=== PATIENT | female | born 1970 | race Caucasian/White ===

== ENCOUNTER → 2018-01-15 07:49 | Outpatient (CLI) | payer OTHER, SELFPAY ==
[2018-01-15 08:51] LABS: Blood Urea Nitrogen 16 mg/dL (7-17); Calcium 9.5 mg/dL (8.4-10.2); Carbon Dioxide 29 mmol/L (22-32); Chloride 102 mmol/L (98-107); Estimated Glomerular Filt Rate > 60.0 mL/min (>60); Glucose 94 mg/dL (70-100); HEMOLYSIS < 15 (0-50); Potassium 4.3 mmol/L (3.4-5.1); Sodium 142 mmol/L (137-145)
[2018-01-15 09:17] LABS: Thyroid Stimulating Hormone 2.34 uIU/mL (0.47-4.68)
== END ==
PROVIDERS: PCP Internal Medicine; Visit Provider Internal Medicine
DX: I10 Essential (primary) hypertension (principal); E28.2 Polycystic ovarian syndrome; E03.9 Hypothyroidism, unspecified
CPT/HCPCS: 36415; 80048; 84443

== ENCOUNTER → 2018-01-21 12:58 | Outpatient (CLI) | payer OTHER, SELFPAY ==
[2018-01-21 13:53] LABS: Cholesterol 189 mg/dL (140-199); HDL Cholesterol 69 mg/dL (40-60); LDL Cholesterol Calculated 109 mg/dL (<100); Triglycerides 54 mg/dL (35-150)
== END ==
PROVIDERS: PCP Internal Medicine; Visit Provider Internal Medicine
DX: E78.5 Hyperlipidemia, unspecified (principal)
CPT/HCPCS: 80061

== ENCOUNTER → 2018-06-26 07:30 | Outpatient (CLI) | payer OTHER, SELFPAY ==
[2018-06-26 08:42] LABS: Add Manual Diff / Slide Review NO; Basophils Percent Auto 0.6 % (0-2); Eosinophils Percent Auto 4.8 % (2-4); Hematocrit 38.9 % (36-46); Hemoglobin 12.7 g/dL (12.0-16.0); Lymphocytes Percent Auto 28.7 % (25-40); Mean Corpuscular HGB Conc 32.8 % (30-36); Mean Corpuscular Hemoglobin 29.5 PG (26-34); Mean Corpuscular Volume 90.1 fL (80-100); Monocytes Percent Auto 8.9 % (3-14); Neutrophils Absolute Auto 3700 /uL (3000-5900); Platelet Count 239 X10^3/uL (150-400); Red Blood Cell Count 4.31 X10^6/uL (4.0-5.2); Red Cell Distribution Width 13.7 % (11.6-14.8); White Blood Cell Count 6.4 X10^3/uL (4.5-11.0)
[2018-06-26 08:58] LABS: Alanine Aminotransferase 24 IU/L (9-52); Albumin 4.4 g/dL (3.5-5.0); Alkaline Phosphatase 45 U/L (38-126); Aspartate Aminotransferase 22 IU/L (14-36); BUN Creatinine Ratio 21.3 (6-22); Bilirubin Total 0.4 mg/dL (0.2-1.3); Blood Urea Nitrogen 17 mg/dL (7-17); Calcium 9.1 mg/dL (8.4-10.2); Carbon Dioxide 28 mmol/L (22-32); Chloride 105 mmol/L (98-107); Estimated Glomerular Filt Rate > 60.0 mL/min (>60); Glucose 91 mg/dL (70-100); Potassium 4.9 mmol/L (3.4-5.1); Sodium 145 mmol/L (137-145); Total Protein 6.9 g/dL (6.3-8.2)
[2018-06-26 08:59] LABS: Albumin Globulin Ratio 1.8 (1.0-2.8); Cholesterol 165 mg/dL (140-199); Globulin 2.5 g/dL (1.7-4.1); HDL Cholesterol 60 mg/dL (40-60); HEMOLYSIS < 15 (0-50); LDL Cholesterol Calculated 96 mg/dL (<100); Triglycerides 44 mg/dL (35-150)
[2018-06-26 09:27] LABS: TSH w/ Reflex to FT4 3.14 uIU/mL (0.47-4.68)
== END ==
PROVIDERS: PCP Internal Medicine; Visit Provider Internal Medicine
DX: E78.5 Hyperlipidemia, unspecified (principal); Z00.00 Encounter for general adult medical examination without abnormal findings
CPT/HCPCS: 36415; 80053; 80061; 84443; 85025

== ENCOUNTER → 2018-07-15 11:07 | Outpatient (CLI) | payer OTHER, SELFPAY ==
--- NOTE | 2018-07-15 | DI.MG.S_ITS ---
BILATERAL DIGITAL SCREENING MAMMOGRAM 3D/2D WITH CAD: 07/15/2018 CLINICAL: Routine screening. Family history of breast cancer. Comparison is made to exams dated: 06/24/2017 specimen, 06/24/2017 stereotactic biopsy - [facility], and 06/17/2017 mammogram - [facility]. There are scattered fibroglandular elements in both breasts. Current study was also evaluated with a Computer Aided Detection (CAD) system. There is a benign biopsy clip in the right breast. No significant masses, calcifications, or other findings are seen in either breast. There has been no significant interval change. IMPRESSION: NEGATIVE There is no mammographic evidence of malignancy. A 1 year screening mammogram is recommended. This exam was interpreted at Station ID: [id number]. NOTE: For mammograms, a report in lay terms will be sent to the patient. Approximately 15% of breast malignancies will not be visualized mammographically. In the management of a palpable breast mass, a negative mammogram must not discourage biopsy of a clinically suspicious lesion. Electronically Signed By: Jorge diehl/bruce:07/15/2018 16:02:25 letter sent: Normal Exam ACR BI-RADS Category 1: Negative 3341F
== END ==
PROVIDERS: PCP Internal Medicine; Visit Provider Internal Medicine
DX: Z12.31 Encounter for screening mammogram for malignant neoplasm of breast (principal); Z80.3 Family history of malignant neoplasm of breast
CPT/HCPCS: 77063; 77067

== ENCOUNTER → 2018-09-15 14:30 | Outpatient (CLI) | payer OTHER, SELFPAY ==
--- NOTE | 2018-09-15 | DI.ECHO.S_ITS ---
[place] [facility]---------+ [facility] +---------+ : : [address] : : : : [id number] : : : : Phone: [phone]+ Echocardiogram Report + + :Name: KALANI AVLAREZ Study Date: 09/15/2018 Height: 67 in : :[facility] Weight: 174 lb : : Gender: Female BSA: 1.9 m2 : :: 1970 Age: 48 yrs BP: 132/70 mmHg: :Reason For Study: Murmur : : Performed By: Diana Montalvo : :Referring: RENETTA DEL VALLE : + + Interpretation Summary The ejection fraction is estimated to be 60-65%. The ascending aorta is mildly enlarged. There is no significant valvular heart disease. Procedure: A two-dimensional transthoracic echocardiogram with color flow and Doppler was performed. The study quality was technically adequate. There is no prior echocardiogram noted for this patient. The patient was in normal sinus rhythm during the exam. Left Ventricle: The left ventricle is normal in size, wall thickness, and systolic function without any focal wall motion abnormalities. The ejection fraction is estimated to be 60-65%. Left ventricular wall motion is normal. Diastolic parameters suggest probable normal left ventricular diastolic function and normal filling pressures. Right Ventricle: The right ventricle grossly appears normal in size with probable normal systolic function. Atria: The left atrial size is normal. Right atrial size is normal. The interatrial septum is intact with no evidence for an atrial septal defect. Mitral Valve: The mitral valve is normal in structure and function. There is no mitral regurgitation noted. Aortic Valve: The aortic valve is trileaflet. The aortic valve opens well. No aortic regurgitation is present. Tricuspid Valve: The tricuspid valve is normal in structure and function. There is a trace or physiologic amount of tricuspid regurgitation. The right ventricular systolic pressure is estimated to be at least 27 mmHg based on an estimated right atrial pressure of 3 mm Hg. Pulmonic Valve: The pulmonic valve is normal in structure and function. There is a trace or physiologic amount of pulmonic regurgitation. Great Vessels: The aortic root is normal size. The ascending aorta is mildly enlarged. The aortic arch is normal in size. The IVC is of normal diameter and collapses greater than 50% with a sniff. This suggests a low right atrial pressure of 3 mm Hg. Pericardium/ Pleura There is no pericardial effusion. There is no pleural effusion. MMode/2D Measurements & Calculations LVIDd: 5.1 cm Ao root diam: 3.2 cm LVIDs: 3.2 cm Aortic Jxn: 2.9 cm FS: 37.0 % asc Aorta Diam: 3.8 cm IVSd: 0.96 cm Ao Arch Diam (Prox Trans): 2.8 cm LVPWd: 0.96 cm LV hunt. diameter/BSA (cm/m^2): 2.7 LV sys. diameter/BSA (cm/m^2): 1.7 LA dimension: 3.8 cm RA long axis: 5.2 cm LA A2 area: 18.3 cm2 RA area: 18.0 cm2 LA A4 area: 18.9 cm2 RA vol: 52.4 ml LA length (vol): 5.3 cm RA : 27.5 ml/m2 LA vol: 55.6 ml IVC diam: 1.7 cm LA vol index: 29.2 ml/m2 RVDd major: 4.9 cm RVD1 (basal): 3.3 cm RVD2 (mid): 3.0 cm Doppler Measurements & Calculations Ao V2 max: 126.7 cm/sec MV E max óscar: 79.3 cm/sec Ao V2 mean: 83.8 cm/sec MV A max óscar: 76.7 cm/sec Ao max P.4 mmHg MV E/A: 1.0 Ao mean P.2 mmHg Med Peak E' Óscar: 8.0 cm/sec Ao V2 VTI: 26.0 cm E/E' med: 9.9 Lat Peak E' Óscar: 10.4 cm/sec E/E' lat: 7.6 E/e' average: 8.8 MV dec time: 0.31 sec MV P1/2t: 91.6 msec TR max óscar: 242.6 cm/sec MV P1/2t max óscar: 78.1 cm/sec TR max P.5 mmHg MVA(P1/2t): 2.4 cm2 PA V2 max: 105.0 cm/sec PA V2 mean: 72.1 cm/sec PA mean P.4 mmHg PA Accel Time: 0.16 sec Reading Physician:09:25 AM
[2018-09-15 16:23] LABS: Free T3, Triiodothyronine Free 3.14 pg/mL (2.77-5.27); Free T4, Direct Thyroxine 1.08 ng/dL (0.78-2.19)
[2018-09-15 16:37] LABS: Thyroid Stimulating Hormone 2.57 uIU/mL (0.47-4.68)
== END ==
PROVIDERS: PCP Internal Medicine; Visit Provider Internal Medicine
DX: R01.1 Cardiac murmur, unspecified (principal); I77.810 Thoracic aortic ectasia; E03.9 Hypothyroidism, unspecified
CPT/HCPCS: 36415; 84439; 84443; 84481; 93306

== ENCOUNTER → 2019-05-03 09:33 | Outpatient (CLI) | payer OTHER, SELFPAY | PROVIDERS: PCP Internal Medicine; Visit Provider Physician Assistant | DX: N39.0 Urinary tract infection, site not specified (principal) | CPT/HCPCS: 87077; 87086; 87147; 87186 ==

== ENCOUNTER → 2019-09-07 15:57 | Outpatient (CLI) | payer OTHER, SELFPAY ==
--- NOTE | 2019-09-07 | DI.MG.S_ITS ---
BILATERAL DIGITAL SCREENING MAMMOGRAM 3D/2D WITH CAD: 09/07/2019 CLINICAL: Routine screening. Family history of breast cancer. Comparison is made to exams dated: 07/15/2018 mammogram, 06/13/2017 mammogram, 06/11/2016 mammogram, 06/06/2015 mammogram, and 05/02/2014 mammogram - [facility]. There are scattered fibroglandular elements in both breasts. Current study was also evaluated with a Computer Aided Detection (CAD) system. There is a biopsy clip in the right breast. No significant masses, calcifications, or other findings are seen in either breast. There has been no significant interval change. IMPRESSION: NEGATIVE There is no mammographic evidence of malignancy. A 1 year screening mammogram is recommended. This exam was interpreted at Station ID: [id number]. NOTE: For mammograms, a report in lay terms will be sent to the patient. Approximately 15% of breast malignancies will not be visualized mammographically. In the management of a palpable breast mass, a negative mammogram must not discourage biopsy of a clinically suspicious lesion. Electronically Signed By: Adriano jameson/bruce:09/07/2019 18:11:30 letter sent: Normal Exam ACR BI-RADS Category 1: Negative 3341F
== END ==
PROVIDERS: PCP Internal Medicine; Referring Provider Internal Medicine; Visit Provider Internal Medicine
DX: Z12.31 Encounter for screening mammogram for malignant neoplasm of breast (principal); Z80.3 Family history of malignant neoplasm of breast
CPT/HCPCS: 77063; 77067

== ENCOUNTER → 2020-02-15 08:32 | Outpatient (CLI) | payer OTHER, SELFPAY ==
[2020-02-16 14:44] LABS: COVID19 Sendout Not Detected (Not Detect)
== END ==
PROVIDERS: PCP Internal Medicine; Visit Provider Physician Assistant
DX: Z01.812 Encounter for preprocedural laboratory examination (principal)
CPT/HCPCS: 87635

== ENCOUNTER 2020-02-18 12:02 | Day surgery (SDC) | payer OTHER, SELFPAY ==
--- NOTE | 2020-02-18 12:07 | PM.HP.1 ---
History of Present Illness History of Present Illness Date Patient Seen: 02/18/20 Chief complaint: [id number] SCREENING COLONOSCOPY Narrative: 49 Years Old Female seen today for consideration of a screening colonoscopy. There have been no lower GI symptoms suggesting disease such as change in bowel habits, bleeding, abdominal pain or anemia. There's been no family history of colon cancer or colon polyps. Overall health issues have been stable, including no major cardiac events for at least 6 weeks. Current Medications (verified): 1) Atenolol 25 Mg Oral Tablet (Atenolol) .... Take 1/2 tablet once a day for blood pressure control. 2) Levothyroxine Sodium 25 Mcg Oral Tablet (Levothyroxine Sodium) .... Take 1 tablet by mouth once a day for thyroid replacement. 3) Estradiol 0.5 Mg Oral Tablet (Estradiol) .... Take 1/2 tablet by mouth every day for hormone replacement. 4) Fish Oil 1000 Mg Oral Capsule ([place]-3 Fatty Acids) .... take one capsule 1 time a day to reduce cardiovascular risk 5) Multi-Vitamin/minerals Oral Tablet (Multiple Vitamins-Minerals) .... take one daily 6) Vitamin D3 2000 Unit Oral Capsule (Cholecalciferol) .... Take one capsule once daily. Allergies (verified): No Known Drug Allergies Past Medical History: Reviewed history from 08/31/2018 and no changes required: Pregnancies: 1 Live Births: 1 Living children: 1 Hypertension Hyperlipidemia Dermatology - Miriam Cuevas PA-C for moles Past Surgical History: Reviewed history from 08/31/2018 and no changes required: Hysterectomy - November 2015 LAVH - 11/2015 Laprotomy post-op infection - 12/2015 - April 2005 Family History: Reviewed history from 08/31/2018 and no changes required: Father: Oren Roper (1948) - living, hypertension Mother: Maryuri Nelson (1949) - living, macular degeneration Siblings: Sanjay Nelson (1971) Hyperlipidemia, hypertension, hypothyroidism, Heart troubles. Social History: Reviewed history from 09/28/2019 and no changes required: Marital Status: - . 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 [employer] Household Members: 2 Education: Some college Alcohol drinks/day: <1/day Caffeine use/day: 3-4 Type of Exercise: yoga, walk/run, strength Exercise Times per Week: 5-7 Guns in home: no Dental Care w/in 6 mos.: yes Sun Exposure: rarely Fall Risk: no falls in past year Seat Belt Use: yes Smoking Status: former smoker Tobacco Type: cigarettes Packs/Day: 1 Pack years: 8 Passive Smoke Exposure: yes Drug Use: never HIV High Risk Behavior: no Patient History Medical History (Updated 11/27/18 @ 10:01 by ROMULO Ocampo) Hyperlipidemia (Chronic ~2010) Hypertension (Chronic ~2010) Surgical History (Updated 12/02/17 @ 05:17 by Conversion Provider) Status post delivery (04/26/05) Family & Social History Family History (Updated 06/28/18 @ 19:40 by Aracelis Sky) Brother Age: 47 Hypertension High cholesterol Father Hypertension Social History: household members lives independently Yes caregiver/support person No Tobacco & Substance use: Smoking Status Former smoker alcohol intake current Meds Home Medications and Allergies Home Medications Medication Instructions Recorded Confirmed Type Fish Oil (#FISH OIL) 1 iu PO Q DAY #0 08/01/11 05/03/19 History multivitamin [Multiple Vitamins] 1 tab PO QDAY #0 tab 06/03/16 05/03/19 History alprazolam 0.25 mg tablet 0.25 mg PO Q12HP #12 06/29/18 05/03/19 Rx eflornithine 13.9 % topical cream 1 applictn TOPICAL BID #45 gram 06/29/18 05/03/19 Rx Respironics Remstar CPAP #1 ea 11/30/18 05/03/19 History atenolol 25 mg tablet 12.5 mg PO DAILY tab 11/30/18 05/03/19 History cholecalciferol (vitamin D3) 50 2,000 unit PO DAILY 11/30/18 05/03/19 History mcg (2,000 unit) capsule estradiol 0.5 mg tablet 0.5 mg PO DAILY 11/30/18 05/03/19 History phenazopyridine 100 mg tablet 100 mg PO TID PRN 0 Days #6 tab 05/03/19 05/03/19 Rx sulfamethoxazole 800 1 tab PO BID #14 tab 05/03/19 05/03/19 Rx mg-trimethoprim 160 mg tablet Allergies Allergy/AdvReac Type Severity Reaction Status Date / Time No Known Allergies Allergy Uncoded 02/15/20 16:34 Review of Systems Review of Systems ROS: Yes All systems reviewed with the patient and are negative except as otherwise documented Exam Narrative Exam Narrative: General: Alert and oriented, appearing stated age and in no acute distress. Head: Head normocephalic/atraumatic. Neck: Neck soft and supple, no lymphadenopathy. Lungs: Clear to auscultation bilaterally, no wheezes, rhonchi or rales. Heart: Normal S1 and S2 with regular rate and rhythm, no audible murmurs, rubs or gallops. Abdomen: Soft, non-tender, non-distended, no organomegaly. Possitive bowel sounds. Psych: Alert and oriented x 3. Assessment & Plan Assessment & Plan narrative: 1. Screening for colon cancer Plan for colonoscopy. The nature and character of the procedure as well as anticipated results were discussed. The possibility of not completing the procedure was also discussed. Possible complications including aspiration pneumonia, bleeding, perforation and reaction to medications either for sedation or preparation and missed lesions were discussed. Questions were answered and proceeding to the colonoscopy was elected. Informed consent signed. I sincerely appreciate the referral allowing me to participate in this patient's care. Please contact me with any questions or concerns.
--- NOTE | 2020-02-18 12:09 | PM.OP.ENDO ---
Operative Date/Time/Diagnoses Date of procedure: 02/18/20 Pre-op diagnosis: 1. Screening for colon cancer Post-op diagnosis: other (1. Normal colonoscopy, 2. Pancolonic diverticulosis) Procedure & Clinicians Study performed: Colonoscopy Same procedure as scheduled: Yes Indications: 1. Screening for colon cancer Surgeon: Dolores Boateng Procedure Notes SCOAP/Timeout: 13:06 Procedure in detail: ENDOSCOPIST: Dolores Boateng MD Sedation RN: Stefanie Go RN Sedation start time: 1:07 p.m. Sedation end time: 1:32 p.m. PROCEDURE: Colonoscopy INDICATIONS: 1. Screening for colon cancer MEDICATION: Levsin 0.125 mg sublingual, incremental doses of Versed and fentanyl until appropriate level sedation achieved. ASA CLASS: 2 CECAL WITHDRAWAL TIME: 12 minutes COMPLICATIONS: None. EXTENT OF PROCEDURE: Cecum. QUALITY OF PREP: Good with portions of liquid stool. PROCEDURE: Prior to insertion of the colonoscope, a digital rectal examination was accomplished with circumferential palpation of the distal rectal mucosa without significant findings being noted. The high-definition pediatric colonoscope was passed into the rectum in the usual fashion and advanced over to the cecum without difficulty. The ileocecal valve, appendiceal stoma, and medial wall all could be inspected and no abnormalities were seen. ASCENDING COLON: As the colonoscope was withdrawn, care was taken to expose and inspect the haustral folds and minor diverticulosis was noted. HEPATIC FLEXURE: Minor diverticulosis, otherwise, normal, no polyps, or other abnormalities. TRANSVERSE COLON: Minor diverticulosis, otherwise, normal, no polyps, or other abnormalities. DESCENDING COLON: Moderate diverticulosis, otherwise, normal, no polyps, or other abnormalities. SIGMOID COLON: Moderate diverticulosis, otherwise, normal, no polyps, or other abnormalities. RECTUM: Normal. J maneuver was produced. There was no significant perianal disease. The J maneuver was broken. The remainder of the rectum was inspected and there was no external hemorrhoid disease. The scope was withdrawn. IMPRESSION: 1. Normal colonoscopy 2. Pancolonic diverticulosis PLAN: 1. Repeat colonoscopy in 10 years. The possibility of a missed lesion including a malignancy has been discussed with the patient previously. Potential alarm symptoms have been discussed and should be reported immediately. Specimen(s): none sent Complications: none Post-procedure Recommendations: Colonscopy in 10 years Follow up: as needed Disposition: PACU
[2020-02-18 12:14] VITALS: BP 118/76; PULSE 60; RESP 16; TEMP 36.2; O2SAT 99; BMI 27.3
[2020-02-18] MEDS: LACTATED RINGERS 1,000 ML 200 ML IV ×2 (12:20→13:38)
[2020-02-18] MEDS: MIDAZOLAM 5 MG/5 ML VIAL IV (13:16)
[2020-02-18] MEDS: fentaNYL 250 MCG/5 ML INJ IV (13:16)
[2020-02-18 13:36] VITALS: BP 111/70; PULSE 62; RESP 13; O2SAT 100
[2020-02-18 13:41] VITALS: BP 117/75; PULSE 67; RESP 15; TEMP 35.7; O2SAT 100
[2020-02-18 13:51] VITALS: BP 120/73; PULSE 64; RESP 18; O2SAT 100
== END 2020-02-18 14:05 | disposition home or self-care (01) ==
PROVIDERS: PCP Internal Medicine; Referring Provider Student in an Organized Health Care Education/Training Program; Visit Provider Student in an Organized Health Care Education/Training Program
PROC: 0DJD8ZZ Inspection of Lower Intestinal Tract, Via Natural or Artificial Opening Endoscopic (ICD-10-PCS; CPT 45378; principal; 2020-02-18 13:00)
DX: Z12.11 Encounter for screening for malignant neoplasm of colon (principal); I10 Essential (primary) hypertension; E78.5 Hyperlipidemia, unspecified; K57.30 Diverticulosis of large intestine without perforation or abscess without bleeding
CPT/HCPCS: 45378; J2250; J3010

== ENCOUNTER → 2020-12-14 08:05 | Outpatient (CLI) | payer OTHER, SELFPAY ==
--- NOTE | 2020-12-14 | DI.MG.S_ITS ---
BILATERAL DIGITAL SCREENING MAMMOGRAM 3D/2D WITH CAD: 12/14/2020 CLINICAL: Routine screening. Family history of breast cancer. Comparison is made to exams dated: 09/07/2019 mammogram, 07/15/2018 mammogram, and 06/13/2017 mammogram - [facility]. There are scattered fibroglandular elements in both breasts. Current study was also evaluated with a Computer Aided Detection (CAD) system. There is a biopsy clip in the right breast. No significant masses, calcifications, or other findings are seen in either breast. There has been no significant interval change. IMPRESSION: NEGATIVE There is no mammographic evidence of malignancy. A 1 year screening mammogram is recommended. This exam was interpreted at Station ID: [id number]. NOTE: For mammograms, a report in lay terms will be sent to the patient. Approximately 15% of breast malignancies will not be visualized mammographically. In the management of a palpable breast mass, a negative mammogram must not discourage biopsy of a clinically suspicious lesion. Electronically Signed By: Jorge diehl/bruce:12/14/2020 09:01:49 letter sent: Normal Exam ACR BI-RADS Category 1: Negative 3341F
== END ==
PROVIDERS: PCP Internal Medicine; Referring Provider Internal Medicine; Visit Provider Internal Medicine
DX: Z12.31 Encounter for screening mammogram for malignant neoplasm of breast (principal); Z80.3 Family history of malignant neoplasm of breast
CPT/HCPCS: 77063; 77067

== ENCOUNTER → 2021-12-28 08:53 | Outpatient (CLI) | payer OTHER, SELFPAY ==
--- NOTE | 2021-12-28 | DI.MG.S_ITS ---
BILATERAL DIGITAL SCREENING MAMMOGRAM 3D/2D WITH CAD: 12/28/2021 CLINICAL: Routine screening. Family history of breast cancer. Comparison is made to exams dated: 12/14/2020 mammogram, 09/07/2019 mammogram, and 07/15/2018 mammogram - [facility]. The tissue of both breasts is predominantly fatty. Current study was also evaluated with a Computer Aided Detection (CAD) system. There is a biopsy clip in the right breast. No significant masses, calcifications, or other findings are seen in either breast. There has been no significant interval change. IMPRESSION: NEGATIVE There is no mammographic evidence of malignancy. A 1 year screening mammogram is recommended. This exam was interpreted at Station ID: [id number]. NOTE: For mammograms, a report in lay terms will be sent to the patient. Approximately 15% of breast malignancies will not be visualized mammographically. In the management of a palpable breast mass, a negative mammogram must not discourage biopsy of a clinically suspicious lesion. Electronically Signed By: Orin walters/bruce:12/28/2021 12:30:14 letter sent: Normal Exam ACR BI-RADS Category 1: Negative 3341F
== END ==
PROVIDERS: PCP Internal Medicine; Referring Provider Internal Medicine; Visit Provider Internal Medicine
DX: Z12.31 Encounter for screening mammogram for malignant neoplasm of breast (principal); Z80.3 Family history of malignant neoplasm of breast
CPT/HCPCS: 77063; 77067

== ENCOUNTER → 2023-03-19 08:08 | Outpatient (CLI) | payer OTHER, SELFPAY ==
--- NOTE | 2023-03-19 | DI.MG.S_ITS ---
BILATERAL DIGITAL SCREENING MAMMOGRAM 3D/2D WITH CAD: 03/19/2023 CLINICAL: Routine screening. Family history of breast cancer. Comparison is made to exams dated: 12/28/2021 mammogram, 12/14/2020 mammogram, and 09/07/2019 mammogram - [facility]. Both breasts are almost entirely fatty (category a/<25% glandular tissue). Current study was also evaluated with a Computer Aided Detection (CAD) system. There is a biopsy clip in the right breast. No significant masses, calcifications, or other findings are seen in either breast. There has been no significant interval change. IMPRESSION: NEGATIVE There is no mammographic evidence of malignancy. A 1 year screening mammogram is recommended. Based on the Tyrer Cuzick model (a risk assessment model) the patient's lifetime risk is 10.3% and her 10 year risk is 2.8%. According to the ACR, ACS, and NCCN guidelines, an annual breast MRI exam along with mammogram is recommended if the patient's lifetime risk is 20% or greater. This exam was interpreted at Station ID: [id number]. NOTE: For mammograms, a report in lay terms will be sent to the patient. Approximately 15% of breast malignancies will not be visualized mammographically. In the management of a palpable breast mass, a negative mammogram must not discourage biopsy of a clinically suspicious lesion. Electronically Signed By: Orin walters/bruce:03/19/2023 12:00:07 letter sent: Normal Exam ACR BI-RADS Category 1: Negative 3341F
== END ==
PROVIDERS: PCP Internal Medicine; Referring Provider Internal Medicine; Visit Provider Internal Medicine
DX: Z12.31 Encounter for screening mammogram for malignant neoplasm of breast (principal); Z80.3 Family history of malignant neoplasm of breast
CPT/HCPCS: 77063; 77067

== ENCOUNTER → 2023-03-21 08:45 | Outpatient (CLI) | payer OTHER, SELFPAY ==
[2023-03-21 10:04] LABS: Add Manual Diff / Slide Review NO; Basophils Absolute Auto 0 /uL (0-100); Basophils Percent Auto 0.6 % (0-2); Eosinophils Absolute Auto 200 /uL (0-450); Eosinophils Percent Auto 3.2 % (2-4); Hematocrit 39.9 % (36-46); Hemoglobin 13.3 g/dL (12.0-16.0); Lymphocytes Absolute Auto 1800 /uL (1100-4500); Lymphocytes Percent Auto 29.5 % (25-40); Mean Corpuscular HGB Conc 33.3 % (30-36); Mean Corpuscular Hemoglobin 28.5 PG (26-34); Mean Corpuscular Volume 85.6 fL (80-100); Monocytes Absolute Auto 500 /uL (0-900); Monocytes Percent Auto 7.7 % (3-14); Neutrophils Absolute Auto 3500 /uL (1500-7000); Platelet Count 238 X10^3/uL (150-400); Red Blood Cell Count 4.66 X10^6/uL (4.0-5.2); Red Cell Distribution Width 14.4 % (11.6-14.8)
[2023-03-21 10:28] LABS: Alanine Aminotransferase 24 IU/L (<35); Albumin 4.2 g/dL (3.5-5.0); Albumin Globulin Ratio 1.6 (1.0-2.8); Alkaline Phosphatase 84 U/L (38-126); Aspartate Aminotransferase 27 IU/L (14-36); Bilirubin Total 0.6 mg/dL (0.2-1.3); Blood Urea Nitrogen 15 mg/dL (7-17); Calcium 9.5 mg/dL (8.4-10.2); Carbon Dioxide 29 mmol/L (22-32); Chloride 102 mmol/L (98-107); Cholesterol 243 mg/dL (140-199); Estimated Glomerular Filt Rate > 60 mL/min (>60); Globulin 2.7 g/dL (1.7-4.1); Glucose 104 mg/dL (70-100); HDL Cholesterol 62 mg/dL (40-60); HEMOLYSIS < 15 (0-50); LDL Cholesterol Calculated 148 mg/dL (<100); Potassium 4.8 mmol/L (3.4-5.1); Sodium 139 mmol/L (137-145); Total Protein 6.9 g/dL (6.3-8.2); Triglycerides 165 mg/dL (35-150)
[2023-03-21 10:53] LABS: Thyroid Stimulating Hormone 2.39 uIU/mL (0.47-4.68)
== END ==
PROVIDERS: PCP Internal Medicine; Referring Provider Internal Medicine; Visit Provider Internal Medicine
DX: Z51.81 Encounter for therapeutic drug level monitoring (principal); I10 Essential (primary) hypertension; E78.00 Pure hypercholesterolemia, unspecified; E03.9 Hypothyroidism, unspecified
CPT/HCPCS: 36415; 80053; 80061; 84443; 85025

== ENCOUNTER → 2024-03-26 08:46 | Outpatient (CLI) | payer OTHER, SELFPAY ==
[2024-03-26 09:48] LABS: Add Manual Diff / Slide Review NO; Basophils Absolute Auto 0 /uL (0-100); Basophils Percent Auto 0.5 % (0-2); Eosinophils Absolute Auto 100 /uL (0-450); Eosinophils Percent Auto 1.9 % (2-4); Hematocrit 41.7 % (36-46); Hemoglobin 13.7 g/dL (12.0-16.0); Lymphocytes Absolute Auto 1900 /uL (1100-4500); Lymphocytes Percent Auto 25.2 % (25-40); Mean Corpuscular HGB Conc 32.9 % (30-36); Mean Corpuscular Hemoglobin 28.6 PG (26-34); Mean Corpuscular Volume 86.8 fL (80-100); Monocytes Absolute Auto 700 /uL (0-900); Monocytes Percent Auto 8.9 % (3-14); Neutrophils Absolute Auto 4900 /uL (1500-7000); Neutrophils Percent Auto 63.5 % (50-75); Platelet Count 251 X10^3/uL (150-400); Red Cell Distribution Width 14.3 % (11.6-14.8); White Blood Cell Count 7.7 X10^3/uL (4.5-11.0)
[2024-03-26 09:54] LABS: Hemoglobin A1C% w Est Avg Glu 5.5 % (4.0-6.0)
[2024-03-26 10:11] LABS: Alanine Aminotransferase 25 IU/L (<35); Albumin 4.4 g/dL (3.5-5.0); Albumin Globulin Ratio 1.8 (1.0-2.8); Alkaline Phosphatase 77 U/L (38-126); Aspartate Aminotransferase 26 IU/L (14-36); BUN Creatinine Ratio 14.1 (6-22); Bilirubin Total 0.6 mg/dL (0.2-1.3); Blood Urea Nitrogen 12 mg/dL (7-17); Calcium 9.7 mg/dL (8.4-10.2); Carbon Dioxide 26 mmol/L (22-32); Chloride 103 mmol/L (98-107); Cholesterol 252 mg/dL (140-199); Estimated Glomerular Filt Rate > 60 mL/min (>60); Globulin 2.5 g/dL (1.7-4.1); Glucose 98 mg/dL (70-100); HDL Cholesterol 56 mg/dL (40-60); HEMOLYSIS < 15 (0-50); LDL Cholesterol Calculated 159 mg/dL (<100); Potassium 5.1 mmol/L (3.4-5.1); Sodium 140 mmol/L (137-145); Total Protein 6.9 g/dL (6.3-8.2); Triglycerides 187 mg/dL (35-150)
[2024-03-26 10:37] LABS: TSH w/ Reflex to FT4 1.59 uIU/mL (0.47-4.68)
== END ==
LOC: LAB 08:48
PROVIDERS: PCP Internal Medicine; Referring Provider Internal Medicine; Visit Provider Internal Medicine
DX: I10 Essential (primary) hypertension (principal); Z13.0 Encounter for screening for diseases of the blood and blood-forming organs and certain disorders involving the immune mechanism; E78.00 Pure hypercholesterolemia, unspecified; R73.03 Prediabetes; Z11.59 Encounter for screening for other viral diseases; E03.9 Hypothyroidism, unspecified
CPT/HCPCS: 36415; 80053; 80061; 83036; 84443; 85025

== ENCOUNTER → 2024-05-03 08:03 | Outpatient (CLI) | payer OTHER, SELFPAY ==
--- NOTE | 2024-05-03 | DI.MG.S_ITS ---
BILATERAL DIGITAL SCREENING MAMMOGRAM 3D/2D WITH CAD: 05/03/2024 CLINICAL: Routine screening. Family history of breast cancer. Comparison is made to exams dated: 03/19/2023 mammogram, 12/28/2021 mammogram, and 12/14/2020 mammogram - [facility]. The breasts are almost entirely fatty (category a/<25% glandular tissue). Current study was also evaluated with a Computer Aided Detection (CAD) system. There is a biopsy clip in the right breast. There is a possible developing focal asymmetry in the right breast lower inner quadrant at posterior depth, best seen on the CC view. No other significant masses, calcifications, or other findings are seen in either breast. IMPRESSION: INCOMPLETE: NEED ADDITIONAL IMAGING EVALUATION The possible developing focal asymmetry in the right breast is indeterminate. A diagnostic mammogram and ultrasound is recommended. Based on the Tyrer Cuzick model (a risk assessment model) the patient's lifetime risk is 10.2% and her 10 year risk is 3.0%. According to the ACR, ACS, and NCCN guidelines, an annual breast MRI exam along with mammogram is recommended if the patient's lifetime risk is 20% or greater. This exam was interpreted at Station ID: [id number]. NOTE: For mammograms, a report in lay terms will be sent to the patient. Approximately 15% of breast malignancies will not be visualized mammographically. In the management of a palpable breast mass, a negative mammogram must not discourage biopsy of a clinically suspicious lesion. Electronically Signed By: Ariela Banerjee M.D., Ph.D. eb/:05/03/2024 10:48:31 letter sent: Additional Imaging Needed ACR BI-RADS Category 0: Incomplete: Need Additional Imaging Evaluation
== END ==
PROVIDERS: PCP Internal Medicine; Referring Provider Internal Medicine; Visit Provider Internal Medicine
DX: Z12.31 Encounter for screening mammogram for malignant neoplasm of breast (principal); Z80.3 Family history of malignant neoplasm of breast; R92.313 Mammographic fatty tissue density, bilateral breasts
CPT/HCPCS: 77063; 77067

== ENCOUNTER → 2024-05-17 13:39 | Outpatient (CLI) | payer OTHER, SELFPAY ==
--- NOTE | 2024-05-17 13:41 | DI.MG.S_ITS ---
UNILATERAL RIGHT DIGITAL DIAGNOSTIC MAMMOGRAM 3D/2D WITH ADDITIONAL VIEWS: 05/17/2024 CLINICAL: Additional evaluation requested from prior study. Comparison is made to exams dated: 05/03/2024 mammogram, 03/19/2023 mammogram, and 12/28/2021 mammogram - [facility]. The breasts are almost entirely fatty (category a/<25% glandular tissue). There is a biopsy clip in the right breast. Redemonstration of previously described possible developing focal asymmetry in the right breast at 3 o'clock middle depth. This is seen in today's additional views. No other significant masses or calcifications are seen in the breast. IMPRESSION: INCOMPLETE: NEED ADDITIONAL IMAGING EVALUATION The possible developing focal asymmetry in the right breast resembles clustered cysts and is indeterminate. An ultrasound is recommended for further evaluation and is scheduled to immediately follow this examination. Based on the Tyrer Cuzick model (a risk assessment model) the patient's lifetime risk is 10.2% and her 10 year risk is 3.0%. According to the ACR, ACS, and NCCN guidelines, an annual breast MRI exam along with mammogram is recommended if the patient's lifetime risk is 20% or greater. This exam was interpreted at Station ID: [id number]. NOTE: For mammograms, a report in lay terms will be sent to the patient. Approximately 15% of breast malignancies will not be visualized mammographically. In the management of a palpable breast mass, a negative mammogram must not discourage biopsy of a clinically suspicious lesion. Electronically Signed By: Nirav Eckert M.D. aty/:05/17/2024 14:36:23 letter sent: Additional Imaging Needed ACR BI-RADS Category 0: Incomplete: Need Additional Imaging Evaluation
--- NOTE | 2024-05-17 13:41 | DI.US.S_ITS ---
LIMITED ULTRASOUND OF RIGHT BREAST AND AXILLA: 05/17/2024 CLINICAL: Patient returns today to evaluate a focal asymmetry in the right breast. Comparison is made to exams dated: 05/17/2024 mammogram, 05/03/2024 mammogram, 03/19/2023 mammogram, 12/28/2021 mammogram, 12/14/2020 mammogram, and 09/07/2019 mammogram - [facility]. Color flow and real-time ultrasound of the right breast 4 o'clock, and axilla regions were performed. Rios scale images of the real-time examination were reviewed. There is a cluster of oval masses in the right breast at 4 o'clock middle depth. This cluster of oval masses is hypoechoic and heterogeneously echogenic. This correlates with mammography findings. Color flow imaging demonstrates that there is adjacent vascularity. Associated, mildly ectatic ducts seen. No significant abnormalities were seen sonographically in the right axilla. IMPRESSION: PROBABLY BENIGN The cluster of oval masses in the right breast resembles clustered cysts and/or cluster of minimally ectatic ducts and is probably benign. A follow-up right mammogram and an ultrasound in 6 months is recommended to demonstrate stability. Findings and recommendations were conveyed to the patient during today's evaluation. This exam was interpreted at Station ID: [id number]. Electronically Signed By: Nirav Eckert M.D. at/:05/17/2024 14:59:10 letter sent: Followup Recommended ACR BI-RADS Category 3: Probably Benign
== END ==
PROVIDERS: PCP Internal Medicine; Referring Provider Internal Medicine; Visit Provider Internal Medicine
DX: R92.8 Other abnormal and inconclusive findings on diagnostic imaging of breast (principal); N63.14 Unspecified lump in the right breast, lower inner quadrant; R92.313 Mammographic fatty tissue density, bilateral breasts
CPT/HCPCS: 76642; 77065; G0279

== ENCOUNTER → 2024-07-05 15:04 | Outpatient (CLI) | payer OTHER, SELFPAY ==
--- NOTE | 2024-07-05 15:06 | DI.ECHO.S_ITS ---
[facility] : : [id number] : : [address] [address] : : [id number] : : Phone: [phone] Echocardiogram Report + + :Name: KALANI ALVAREZ Study Date: 07/05/2024 Height: 66 in : :Hospital ReadingLocation: Weight: 220 lb : : Gender: Female BSA: 2.1 m2 : :: 1970 Age: 54 yrs BP: 137/89 mmHg: :Reason For Study: AORTA ENLARGEMENT : :Ordering Physician: ELIGIO, : :RENETTA Performed By: Anthony Fleming : :Referring: RENETTA DEL VALLE : + + Interpretation Summary The left ventricle is normal in size. Left ventricular systolic function appears normal without focal wall motion abnormalities. The ejection fraction is estimated to be 65-70%. Diastolic parameters suggest probable normal left ventricular diastolic function and normal filling pressures. The right ventricle is normal in size and function. The right ventricular systolic pressure is estimated to be at least 20 mmHg based on an estimated right atrial pressure of 3 mm Hg. The left atrial size is normal. There is no significant valvular heart disease. The ascending aorta is mildly enlarged. Procedure: A two-dimensional transthoracic echocardiogram with color flow and Doppler was performed. The study quality was technically good. Comparison is made with the echocardiogram of 09/15/2018. The patient was in normal sinus rhythm during the exam. Left Ventricle: The left ventricle is normal in size. Left ventricular wall thickness is mildly increased. There is no ventricular septal defect visualized. Left ventricular systolic function appears normal without focal wall motion abnormalities. The ejection fraction is estimated to be 65-70%. Diastolic parameters suggest probable normal left ventricular diastolic function and normal filling pressures. Right Ventricle: The right ventricle is normal in size and function. Atria: The left atrial size is normal. Right atrial size is normal. There is no Doppler evidence for an interatrial shunt. Mitral Valve: There is mild mitral annular calcification. The mitral valve leaflets appear to open well. There is trace mitral regurgitation. Aortic Valve: The aortic valve is trileaflet. The aortic valve opens well. No aortic regurgitation is present. Tricuspid Valve: The tricuspid valve is normal in structure and function. There is trace tricuspid regurgitation. The right ventricular systolic pressure is estimated to be at least 20 mmHg based on an estimated right atrial pressure of 3 mm Hg. Pulmonic Valve: The pulmonic valve is normal in structure and function. There is trace pulmonic regurgitation. There is no significant valvular heart disease. Great Vessels: The aortic root is normal size. The ascending aorta is mildly enlarged. The pulmonary artery is normal size. The IVC is of normal diameter and collapses greater than 50% with a sniff. This suggests a low right atrial pressure of 3 mm Hg. Pericardium/ Pleura There is no pericardial effusion. There is no pleural effusion. MMode/2D Measurements & Calculations LVIDd: 4.4 cm LVOT diam: 1.9 cm LVIDs: 2.7 cm Ao root diam: 3.0 cm FS: 38.2 % asc Aorta Diam: 3.8 cm EPSS: 0.55 cm Ao Arch Diam (Prox Trans): 2.0 cm IVSd: 1.2 cm LVPWd: 1.2 cm LV hunt. diameter/BSA (cm/m^2): 2.1 LV sys. diameter/BSA (cm/m^2): 1.3 LA A2 area: 15.2 cm2 RA long axis: 4.2 cm LA A4 area: 21.8 cm2 RA area: 10.9 cm2 LA length (vol): 5.4 cm RA vol: 24.1 ml LA vol: 51.7 ml RA : 11.6 ml/m2 LA vol index: 24.8 ml/m2 IVC diam: 1.6 cm RVD1 (basal): 3.1 cm RVD2 (mid): 3.0 cm TAPSE: 2.4 cm Doppler Measurements & Calculations Ao V2 max: 132.4 cm/sec LVOT Max Óscar: 109.1 cm/sec Ao V2 mean: 98.8 cm/sec LV V1 max P.8 mmHg Ao max P.0 mmHg LV V1 VTI: 27.4 cm Ao mean P.2 mmHg BRIAN(I,D): 2.6 cm2 Ao V2 VTI: 31.2 cm BRIAN(V,D): 2.4 cm2 sev ratio: 0.88 BRIAN indexed to BSA (cm^2/m^2): 1.2 MV E max óscar: 69.2 cm/sec TR max óscar: 204.8 cm/sec MV A max óscar: 67.3 cm/sec TR max P.8 mmHg MV E/A: 1.0 PA V2 max: 88.0 cm/sec Med Peak E' Óscar: 7.1 cm/sec PA V2 mean: 58.0 cm/sec E/E' med: 9.8 PA mean P.6 mmHg Lat Peak E' Óscar: 10.1 cm/sec PA pr(Accel): 24.2 mmHg E/E' lat: 6.9 E/e' average: 8.3 MV dec time: 0.20 sec SV(OT): 80.2 ml Reading Physician:04:09 PM
== END ==
PROVIDERS: PCP Internal Medicine; Referring Provider Internal Medicine; Visit Provider Internal Medicine
DX: I77.89 Other specified disorders of arteries and arterioles (principal); R01.1 Cardiac murmur, unspecified; I34.81 Nonrheumatic mitral (valve) annulus calcification
CPT/HCPCS: 93306

== ENCOUNTER → 2024-12-30 09:02 | Outpatient (CLI) | payer OTHER, SELFPAY ==
--- NOTE | 2024-12-30 09:03 | DI.MG.S_ITS ---
MM diagnostic mammo unilat RT, US breast RT limited: 12/30/2024 BI-RADS: 3 CLINICAL: 54-year old female for right diagnostic mammogram and right diagnostic breast ultrasound that is a follow-up to ultrasound, right on 05/17/2024. [facility]%. No personal or first-degree family history of breast cancer. Current reported family history of breast cancer: paternal grandmother and paternal aunt's daughter. The patient had a prior right breast biopsy. PRIOR EXAMS 05/17/2024, 05/03/2024, 03/19/2023, 12/28/2021, 12/14/2020, 09/07/2019, 07/15/2018, 06/24/2017, 06/17/2017, 06/13/2017, 06/11/2016, 06/06/2015. MAMMOGRAPHY TECHNIQUE: 2D and 3D (tomosynthesis) digital mammographic views obtained, with additional images as needed for full coverage. Current study was also evaluated with a Computer Aided Detection (CAD) system. ULTRASOUND TECHNIQUE Right Axilla. Real-time beckman scale and color doppler imaging of the area of clinical interest was performed with image documentation. TARGETED Right Breast Ultrasound: Real-time ultrasound exam was performed focused to area of clinical and/or imaging concern. DENSITY Right: A. The breasts are almost entirely fatty. MAMMOGRAPHY FINDINGS Right (finding-1): Lower Inner at 3:30, Middle depth: There is an asymmetry present that is unchanged in size and appearance. ULTRASOUND FINDINGS Right: Lower Inner at 4:00, 11 cm from nipple, measuring 1.8 x 1.1 x 1 cm - previously measuring (05/17/2024) 1.7 x 1.7 cm: There is an irregularly shaped, indistinct, hypoechoic cyst vs solid mass that is parallel showing no posterior acoustic features. Right (finding-1): Lower Inner at 4:00, 11 cm from nipple, measuring 0.7 x 0.3 x 0.2 cm - previously measuring (05/17/2024) 0.9 x 0.3 x 0.2 cm: Correlating with findings on mammogram there is a complex mass that has decreased in size. Doppler shows internal vascularity. Right: Axilla: No abnormal lymph nodes are seen in the axilla. IMPRESSION: Right (CvS): Lower Inner at 4:00, 11 cm from nipple, measuring 1.8 x 1.1 x 1 cm - previously measuring (05/17/2024) 1.7 x 1.7 cm * Probably Benign. RECOMMENDATIONS Right: Lower Inner at 4:00, 11 cm from nipple * Six month followup with diagnostic mammography and diagnostic ultrasound. COMMENTS: The patient will also be due for screening mammogram of the contralateral breast at that time. Findings and recommendations were conveyed to the patient during today's evaluation. OVERALL ASSESSMENT CATEGORY BI-RADS-3: Probably Benign. ELECTRONICALLY SIGNED: Nirav Eckert M.D. on 12/30/2024 at 04:30:29 PM PT Interpreting Station ID: [id number]
== END ==
PROVIDERS: PCP Internal Medicine; Referring Provider Registered Nurse; Visit Provider Registered Nurse
DX: R92.8 Other abnormal and inconclusive findings on diagnostic imaging of breast (principal); N63.14 Unspecified lump in the right breast, lower inner quadrant; R92.311 Mammographic fatty tissue density, right breast; Z80.3 Family history of malignant neoplasm of breast
CPT/HCPCS: 76642; 77065; G0279

== ENCOUNTER → 2025-07-11 09:46 | Outpatient (CLI) | payer OTHER, SELFPAY ==
--- NOTE | 2025-07-11 09:47 | DI.MG.S_ITS ---
MM diagnostic mammo BI, US breast RT limited: 07/11/2025 BI-RADS: 3 CLINICAL: 55-year old female for bilateral diagnostic mammogram and right diagnostic breast ultrasound. The patient presents for short interval follow-up. Tyrer- Cuzick lifetime risk of 18.1%. No personal or first-degree family history of breast cancer. Current reported family history of breast cancer: paternal grandmother and paternal aunt's daughter. The patient had a prior right breast biopsy. PRIOR EXAMS 12/30/2024, 05/17/2024, 05/03/2024, 03/19/2023, 12/28/2021, 12/14/2020, 09/07/2019, 07/15/2018. MAMMOGRAPHY TECHNIQUE: 2D and 3D (tomosynthesis) digital mammographic views obtained, with additional images as needed for full coverage. Current study was also evaluated with a Computer Aided Detection (CAD) system. ULTRASOUND TECHNIQUE Real-time beckman scale and color doppler imaging of the area of clinical interest was performed with image documentation. Right targeted breast ultrasound of the area of clinical interest and the axilla was performed with image documentation. DENSITY B. There are scattered areas of fibroglandular density. MAMMOGRAPHY FINDINGS Right (finding-1): Lower Inner Quadrant, Middle depth: Correlating with prior imaging concern, there is a stable focal asymmetry present. Upon further review, this focal asymmetry appears to be similar compared to prior mammograms dating back to at least 07/15/2018. Right: Biopsy marker present on the right. Left: No suspicious mass, asymmetry, microcalcification, or other abnormality seen. ULTRASOUND FINDINGS Right (finding-1): Lower Inner at 4:00, 11 cm from nipple: Correlating with findings on mammogram and prior imaging concern there are multiple complicated cysts that are unchanged in size and appearance. The largest cyst measures approximately 0.7 x 0.3 x 0.2 cm in size. Right: Axilla: No abnormal lymph nodes are seen in the axilla. IMPRESSION: Right (Complicated Cyst): Lower Inner at 4:00, 11 cm from nipple * Probably Benign. Left * No evidence of malignancy. RECOMMENDATIONS Right: Lower Inner at 4:00, 11 cm from nipple * Followup with diagnostic mammography and diagnostic ultrasound in one year to demonstrate 2 year stability. Left * Annual screening mammography in one year. COMMENTS: Findings and recommendations were conveyed to the patient during today's evaluation. OVERALL ASSESSMENT CATEGORY BI-RADS-3: Probably Benign. ELECTRONICALLY SIGNED: Annalee Agee M.D. on 07/11/2025 at 03:03:10 PM PT Interpreting Station ID: [id number]
== END ==
LOC: MAMMO 09:46
PROVIDERS: PCP Registered Nurse; Referring Provider Registered Nurse; Visit Provider Registered Nurse
DX: R92.8 Other abnormal and inconclusive findings on diagnostic imaging of breast (principal); N60.01 Solitary cyst of right breast; Z80.3 Family history of malignant neoplasm of breast
CPT/HCPCS: 76642; 77066; G0279